=== PATIENT | male | born 1995 | race African-American/Black ===

== ENCOUNTER 2020-10-02 18:37 | Emergency (ER) | payer SELFPAY ==
[~2020-10-02] VITALS: Ht 193 cm; Wt 88.6 kg
--- NOTE | 2020-10-02 18:39 | PHYS DOC ---
Past History Past Medical History: Anxiety, Sciatica, STD, UTI General Adult HPI: HPI: ".... My lower back has been hurting for almost 2 months.. it never gets better.. I have been to [facility] twice I been to [facility]... No one has found anything the last place I went was [facility].. They put me on some muscle relaxants.. But I am still having problems.. Patient is a 24 year old male who presents with above hx and complaints of lumbar back pain with sciatic type complaints that run down left leg. Patient denies any problems with defecation or urination. 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 Patient denies past history of specific injury. Does have a history of anxiety. Has past history of UTI and STD. These were treated. Last x-ray was 6 months ago and supposedly no acute findings were noted at [facility]. 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 No specific history of ill contacts. Denies any problems with dysuria. On exam does have lumbar muscle spasms. No midline tenderness. Does have some scoliosis. Straight leg lift exacerbates the pain on the left. Pain appears to follow the sciatic nerve. As no loss of sensation in genital or perirectal area. No penile discharge. Testicles nontender. Patient does occasionally smoke marijuana. Patient used to vape but no longer vapes. Review of Systems: Review of Systems: Constitutional: Denies fever or chills Eyes: Denies change in visual acuity HENT: Denies nasal congestion or sore throat Respiratory: Denies cough or shortness of breath Cardiovascular: Denies chest pain or edema GI: Denies abdominal pain, nausea, vomiting, bloody stools or diarrhea : Denies dysuria Musculoskeletal: Complains of lumbosacral back pain and sciatica on the left Integument: Denies rash Neurologic: Denies headache, focal weakness or sensory changes Endocrine: Denies polyuria or polydipsia Lymphatic: Denies swollen glands Psychiatric: Denies depression or anxiety Family History: Family History: Noncontributory presentation Current Medications: Current Meds: See nursing for home meds Allergies: Allergies: No known allergies Physical Exam: PE: Constitutional: Well developed, well nourished, no acute distress, non-toxic appearance. [] HENT: Normocephalic, atraumatic, bilateral external ears normal, oropharynx moist, no oral exudates, nose normal. [] Eyes: PERRLA, EOMI, conjunctiva normal, no discharge. [] Neck: Normal range of motion, no tenderness, supple, no stridor. [] Cardiovascular:Heart rate regular rhythm, no murmur [] Lungs & Thorax: Bilateral breath sounds equal apex with scattered wheezes on auscultation [] Abdomen: Bowel sounds normal, soft, no tenderness, no masses, no pulsatile masses. Normal male anatomy. Testicles descended. No masses. No saddle loss appreciated. Skin: Warm, dry, no erythema, no rash. [] Back: Lumbar sacral muscle tenderness, no CVA tenderness. [] No midline tenderness. He does have pain that radiates down left sciatic nerve on straight leg lift. Extremities: No tenderness, no cyanosis, no clubbing, ROM intact, no edema. No cording appreciated Neurologic: Alert and oriented X 3, normal motor function, normal sensory function, no focal deficits noted. [] Psychologic: Affect anxious , judgement normal, mood normal. [] EKG: EKG: [] Radiology/Procedures: Radiology/Procedures: [][address] [address] IMAGING REPORT Signed PATIENT: YON HOUGH MACCOUNT: [id number] : 1995 LOCATION: ER AGE: 24 SEX: M EXAM STATUS: REG ER ORD. PHYSICIAN: MINE SWEENEY MD REASON: Persistent back pain- lumbar, 2 months lifting at work PROCEDURE: CT LUMBAR SPINE WO CONTRAST EXAM: CT lumbar spine without IV contrast CLINICAL HISTORY:Persistent back pain- lumbar, 2 months lifting at work COMPARISON: None available. TECHNIQUE: Helical CT was performed through the lumbar spine. Axial, coronal and sagittal reformatted images were generated. PQRS compliance statement - One or more of the following individualized dose reduction techniques were utilized for this study: 1. Automated exposure control 2. Adjustment of the mA and/or kV according to patient size 3. Use of iterative reconstruction technique FINDINGS: Vertebral body heights are preserved. Disc heights are preserved. Straightening of the normal lumbar lordosis. No spondylolisthesis. Mild multilevel Schmorl's nodes are seen, most prominent at L2, L3 and L4. No acute fracture. No evidence for high-grade central canal stenosis although generalized disc bulges are seen at L2-3 and L3-4 as well as L4-5. IMPRESSION: 1. Negative acute fracture or subluxation. Electronically signed by: Joel Vargas MD (10/02/2020 7:32 PM) [facility] DICTATED AND SIGNED BY: OJEL VARGAS MD DATE: 10/02/201929 CC: MINE SWEENEY MD; PCP,NO ~MTH0 0 Heart Score: Risk Factors: Risk Factors: DM, Current or recent (<one month) smoker, HTN, HLP, family history of CAD, obesity. Risk Scores: Score 0 - 3: 2.5% MACE over next 6 weeks - Discharge Home Score 4 - 6: 20.3% MACE over next 6 weeks - Admit for Clinical Observation Score 7 - 10: 72.7% MACE over next 6 weeks - Early Invasive Strategies Course & Med Decision Making: Course & Med Decision Making Pertinent Labs and Imaging studies reviewed. (See chart for details) Patient use Tylenol and ibuprofen for pain. Patient is ice pack. Patient follow-up with primary care. Patient to push fluids. Patient use good mechanics in his job with lifting. Tylenol and ibuprofen for pain. May take Flexeril 10 mg up to 3 times a day for muscle spasms. For marked pain may take Vicoprofen. If continued low back pain make need further radiographic evaluation. Impression: 1. Back Pain- Sciatica> lt. [] Dragon Disclaimer: Candice Disclaimer: This electronic medical record was generated, in whole or in part, using a voice recognition dictation system. Departure Departure: Referrals: PCP,NO (PCP) Scripts Hydrocodone/Ibuprofen (HYDROCODONE-IBUPROFEN 7.5-200 ) 1 Each Tablet 1 TAB PO PRN Q6HRS PRN for PAIN, #30 TAB 0 Refills Prov: MINE SWEENEY MD 10/02/20 Cyclobenzaprine Hcl (CYCLOBENZAPRINE HCL) 10 Mg Tablet 10 MG PO tidprn for spasms, #30 TAB Prov: MINE SWENEEY MD 10/02/20 Candice Disclaimer This chart was dictated in whole or in part using Voice Recognition software in a busy, high-work load, and often noisy Emergency Department environment. It may contain unintended and wholly unrecognized errors or omissions. MINE SWEENEY MD Oct 02, 2020 18:39
[2020-10-02 18:45] VITALS: BP 121/74
[2020-10-02] MEDS ORDERED: HYDR-1179 PO (19:12)
[2020-10-02] MEDS ORDERED: CYCL-331 PO (19:12)
--- NOTE | 2020-10-02 19:34 | RAD ---
EXAM: CT lumbar spine without IV contrast CLINICAL HISTORY:Persistent back pain- lumbar, 2 months lifting at work COMPARISON: None available. TECHNIQUE: Helical CT was performed through the lumbar spine. Axial, coronal and sagittal reformatted images were generated. PQRS compliance statement - One or more of the following individualized dose reduction techniques wer e utilized for this study: 1. Automated exposure control 2. Adjustment of the mA and/or kV according to patient size 3. Use of iterative reconstruction technique FINDINGS: Vertebral body heights are preserved. Disc heights are preserved. Straightening of the normal lumbar lordosis. No spondylolisthesis. Mild multilevel Schmorl's nodes are seen, most prominent at L2, L3 an d L4. No acute fracture. No evidence for high-grade central canal stenosis although generalized disc bulges are seen at L2-3 a nd L3-4 as well as L4-5. IMPRESSION: 1. Negative acute fracture or subluxation. Electronically signed by: Joel Vargas MD (10/02/2020 7:32 PM) [facility]
[2020-10-02] MEDS: KETOROLAC 60 MG/2 ML VIAL. IM ONE (19:39)
[2020-10-02 20:12] LABS: BARBITURATES NEG (NEG); BENZODIAZEPINES NEG (NEG); CANNABINOIDS POS (NEG); COCAINE NEG (NEG); METHADONE NEG (NEG); OPIATES NEG (NEG); PHENCYCLIDINE NEG (NEG)
[2020-10-02 20:14] LABS: BILIRUBIN,URINE NEG (NEG); CLARITY,URINE CLEAR; COLOR,URINE AMBER; GLUCOSE,URINE NEG (NEG); NITRITE,URINE NEG (NEG); UROBILINOGEN,URINE 0.2 mg/dL (0.2 mg/dL)
[2020-10-02 20:15] LABS: BACTERIA,URINE 0 /HPF (0-FEW); RBC,URINE 0 /HPF (0-2); WBC,URINE 0 /HPF (0-4)
[2020-10-02 20:18] LABS: AMPHETAMINE/METHAMPHETAMINE NEG (NEG)
== END 2020-10-02 20:35 | disposition home or self-care (01) ==
LOC: ER 18:37
DX: M54.42 Lumbago with sciatica, left side (principal); Z87.440 Personal history of urinary (tract) infections
CPT/HCPCS: 36415; 72131; 80307; 81001; 87491; 87591; 96372; 99284; J1885